=== PATIENT | male | born 1995 | race Caucasian/White ===

== ENCOUNTER 2017-04-16 18:08 | Emergency (ER) | payer OTHER ==
[~2017-04-16] VITALS: Ht 165.1 cm; Wt 55.8 kg
[2017-04-16] MEDS ORDERED: ZITHROMAX250 MG PO (18:28)
== END 2017-04-16 18:30 | disposition home or self-care (01) ==
LOC: ED 18:08
DX: J32.9 Chronic sinusitis, unspecified (principal)
CPT/HCPCS: 99283